=== PATIENT | female | born 1950 | race Caucasian/White ===

== ENCOUNTER 2017-06-13 12:37 | Outpatient (CLI) | payer MEDICARE, BC ==
[~2017-06-13 12:37] MED LIST: Gadobenate Dimeglumine 529 MG/1 ML (20ML VIAL) ONE
--- NOTE | 2017-06-13 16:40 | RAD ---
SACROILIAC JOINTS 3 VIEWS: Date: 06/13/17 HISTORY: Chronic back pain radiating to the hips. FINDINGS/IMPRESSION: No significant arthritic changes are seen in the SI joints. POS: [facility]
--- NOTE | 2017-06-13 18:53 | MRI ---
LUMBAR SPINE MRI WITH AND WITHOUT CONTRAST: History: Chronic back pain radiating to both hips. Comparison: None. Technique: Lumbar spine MRI is performed with and without intravenous gadolinium administration. Mul tisequential, multiplanar imaging performed. FINDINGS: There is a rightward curvature involving the lumbar spine. There is appropriate T1 marrow signal int ensity in the lumbar vertebrae. Lumbar spine vertebral body height is maintained. No significant STI R hyperintensity to suggest edema or ligamentous injury. There is no abnormal enhancement with regar ds to the vertebral bodies. No abnormal enhancement within the thecal sac including the cauda equina and conus medullaris. There are posterior laminectomy defects in the lower lumbar spine. Symmetric signal intensity of the psoas muscles. Appropriate signal intensity of the visualized beata d organs. T2 hyperintensities in the left and right renal cortex, too small to characterize. Conus medullaris terminates at the superior endplate of L2. On the post contrast images there is no abnormal enhancement within the thecal sac, including the ca uda equina and conus medullaris. T12-L1: Disc desiccation without significant loss of disc space height. No significant central canal stenosis. Moderate right and mild left neural foraminal narrowing. L1-2: Adequate disc hydration. No significant central canal stenosis. Neural foramina are mildly cynthia rowed bilaterally. L2-3: Disc desiccation with mild loss of disc space height. Mild posterior element hypertrophy. No s ignificant central canal stenosis. Moderate right and mild left foraminal narrowing. L3-4: Adequate disc hydration. No significant posterior disc abnormality. No significant central can al stenosis. Right and left neural foramen are patent. L4-5: 1 cm of anterolisthesis of L4 upon L5. There is disc desiccation with mild loss of disc space height. No high grade central canal stenosis. There is mild narrowing of the left subarticular zone. Bilateral hypertrophy is identified. Right neural foramen is patent. Moderate to severe left forami nal narrowing. There is a left hemilaminectomy defect. There is enhancing scar tissue at the operati ve site. L5-S1: Mild to moderate loss of disc space height. No significant posterior disc abnormality. No sig nificant central canal stenosis. Mild bilateral foraminal narrowing. IMPRESSION: 1. Scoliotic curvature of the lumbar spine. 2. Post-surgical changes at L4-5. Significant left foraminal narrowing. 3. Grade I anterolisthesis of L4 upon L5. POS: [facility]
== END 2017-06-13 12:38 | disposition home or self-care (01) ==
LOC: SCSMRI 12:37
PROVIDERS: ATTEND Nurse Practitioner Family
DX: M46.1 Sacroiliitis, not elsewhere classified (principal); M54.16 Radiculopathy, lumbar region; M43.16 Spondylolisthesis, lumbar region; M41.9 Scoliosis, unspecified; M54.5 Low back pain
CPT/HCPCS: 72158; 72202; A9579

== ENCOUNTER 2018-03-02 10:02 | Outpatient (CLI) | payer MEDICARE, BC ==
--- NOTE | 2018-03-02 13:51 | ULT ---
PELVIC ULTRASOUND: History: Right pelvic mass. Comparison: None. Correlation: Lumbar spine MRI from the [facility], 01-17-18. Technique: Transabdominal and endovaginal imaging of the pelvis was performed. Ovaries were interroga alma delia with grayscale, color flow, doppler imaging, and spectral waveform analysis. FINDINGS: Uterus is identified measuring 2.6 x 2.5 x 3.5 cm. Suboptimal evaluation of the endometrium. No obvio us myometrial masses. No masses or fluid in the left adnexa. The left ovary is not appreciated. There are two separate anechoic foci in the right adnexa which may represent two separate right ovari an cysts. These anechoic foci measure 2.3 x 2.5 x 2.1 cm and 3.8 x 4.1 x 3.2 cm. There is no free fluid in the pelvis. OVARIAN DOPPLER: There is vascular flow in the periphery of the anechoic foci. IMPRESSION: 1. Two separate cysts in the right adnexa, left ovarian in origin. Given patient's age, TRAFFIC CONTROL OPERATOR consultat ion is recommended. 2. These presumed right ovarian cysts likely correspond to the T2 hyperintensities noted on previous MRI. Code T POS: [facility]
== END 2018-03-02 10:03 | disposition home or self-care (01) ==
LOC: SCSULT 10:02
PROVIDERS: ATTEND Anesthesiology Pain Medicine
DX: R19.00 Intra-abdominal and pelvic swelling, mass and lump, unspecified site (principal); N83.202 Unspecified ovarian cyst, left side; N83.201 Unspecified ovarian cyst, right side; K83.8 Other specified diseases of biliary tract
CPT/HCPCS: 76856

== ENCOUNTER 2018-05-01 14:51 | Outpatient (CLI) | payer MEDICARE, BC ==
--- NOTE | 2018-05-01 15:39 | RAD ---
LUMBAR SPINE FOUR VIEWS: HISTORY: Back pain. Bilateral hip pain. COMPARISON: None. FINDINGS: There is S-shaped curvature of the lumbar spine. There appear to be five lumbar type vertebral anand s. There is diffuse bone demineralization. No fracture. In the neutral position, the lumbar spine cannot be adequately assessed due to demineralization and bowel gas. In flexion and extension positi ons, the lumbar spine cannot be assessed. IMPRESSION: Suboptimal evaluation of the lumbar spine due to diffuse bone demineralization. There is S-shaped sc oliotic curvature of the lumbar spine. POS: [facility]
--- NOTE | 2018-05-01 16:15 | CT ---
CT LUMBAR SPINE WITHOUT CONTRAST: HISTORY: Lumbar disk degeneration. Low back pain for many years. Bilateral hip pain. COMPARISON: None. TECHNIQUE: A noncontrast lumbar spine CT is performed in the axial plane. Reformatted images are submitted for interpretation. FINDINGS: The visualized lung bases are clear. The visualized solid organs are grossly unremarkable. Evaluati on is limited by lack of IV contrast. No retroperitoneal mass, lymphadenopathy, or hematoma. Symmetric attenuation of the psoas muscles. Hypodensity in the right hemipelvis, incompletely evaluated, with an attenuation coefficient of 9 Lucian nsfield units. There is scoliosis curvature of the lumbar spine. There is vacuum disk phenomenon at T12-L1, L2-L3, and L4-L5. There is partial fusion of the L5-S1 disk space. There are degenerative changes in the p osterior elements. There is no evidence of spondylolysis; however, there is 7 mm of anterolisthesis of L4 upon L5. Lumbar spine vertebral body heights are maintained, and there are no fractures. Limited evaluation of the contents of the central spinal canal and neural foramina. T10-T11: No significant central canal stenosis or neural foraminal narrowing. T12-L1: Minimal left and right paraspinal disk bulges. Minimal central canal stenosis. Mild right and moderate left neural foraminal narrowing. T12-L1: Vacuum disk phenomenon. No high grade central canal stenosis. Mild right foraminal narrowi ng. The left neural foramen is patent. L1-L2: No significant posterior disk abnormality. No significant central canal stenosis. The neura l foramina are patent. L2-L3: Vacuum disk phenomenon. No high grade central canal stenosis. No evidence of high grade christiane ral foraminal narrowing. L3-L4: Generalized disk bulge. Ligamentum flavum thickening and facet hypertrophy result in mild to moderate central canal stenosis. There is vacuum joint phenomenon in the left facet joint. There i s bilateral facet hypertrophy. The right neural foramen is patent. Minimal left foraminal narrowing . L4-L5: Vacuum disk phenomenon. Broad-based disk bulge, ligamentum flavum thickening, and facet hype rtrophy are noted. There is mild central canal stenosis. Mild to moderate right and severe left christiane ral foraminal narrowing. L5-S1: No high grade central canal stenosis. Moderate right and mild left foraminal narrowing. IMPRESSION: 1. Degenerative changes of the lumbar spine, as above. 2. Scoliosis of the lumbar spine, as above. 3. Hypodensity in the right adnexa, as detailed above. This patient had a previous MRI in February 2018. Please confirm that a ONLINE BANKING SPECIALIST consultation has been perfor med. POS: [facility]
== END 2018-05-01 14:52 | disposition home or self-care (01) ==
LOC: TBSIIMAG 14:51
PROVIDERS: ATTEND Surgery
DX: M51.16 Intervertebral disc disorders with radiculopathy, lumbar region (principal); M48.061 Spinal stenosis, lumbar region without neurogenic claudication; M43.16 Spondylolisthesis, lumbar region; M47.26 Other spondylosis with radiculopathy, lumbar region; M41.9 Scoliosis, unspecified; R93.5 Abnormal findings on diagnostic imaging of other abdominal regions, including retroperitoneum; M85.88 Other specified disorders of bone density and structure, other site
CPT/HCPCS: 72110; 72131

== ENCOUNTER 2019-02-23 10:58 | Day surgery (SDC) | payer MEDICARE, BC ==
[2019-02-21 10:27] VITALS: BMI 31.8
[2019-02-23] MEDS ORDERED: Midazolam HCl 2 mg/2 ml Vial ONE (13:22)
[2019-02-23] MEDS ORDERED: Fentanyl 100 MCG/2 ML VIAL ONE (13:23)
[2019-02-23] MEDS ORDERED: Famotidine/PF 20 mg/2ml Vial ONE (13:35)
[2019-02-23] MEDS ORDERED: Ondansetron PF 4 MG/2 ML Vial ONE ×2 (13:36→15:02)
--- NOTE | 2019-02-23 14:36 | MRI ---
MRI LUMBAR SPINE NONCONTRAST: DATE: 02/23/2019 HISTORY: 69-year-old female with chronic low back pain, right lumbar radiculopathy, spinal stenosis, and traum a, fall. COMPARISON: 01/01/2015 FINDINGS: There are 5 lumbar-type vertebrae. Vertebral body heights are maintained. There is a dextroscoliosis with apex of curvature at approximately L4. There is compensatory levoscoliosis at thoracolumbar junction. There are associated high-grade degenerative disc changes, both degenerative disc disease a nd degenerative facet disease, asymmetrically worse on the concave sides of the curvatures. T12-L1:Somewhat severe right-sided disc space narrowing. Diffuse disc bulge-osteophytic bar complex. No high-grade central stenosis and no high-grade neural foraminal stenosis. L1-2:Slight degenerative retrolisthesis of L1 on L2. Mild to moderate disc space narrowing, mostly on the right side. Mild bilateral neural foraminal stenosis. No significant central stenosis. Conus medullaris terminates at upper L2 level. L2-3:Modic type I endplate marrow changes, worse since prior MRI. Mild disc space narrowing. Diffuse disc bulge. Superimposed small central and bilateral paracentral disc extrusion with slight superior migration of disc material, similar to prior MRI. Mild bilateral degenerative facet changes. Mild to moderate bilateral neural foraminal stenosis. Mild central spinal canal stenosis. L3-4:Somewhat severe bilateral degenerative facet changes. No right neural foraminal stenosis. Mild l eft neural foraminal stenosis. Ligamentum flavum thickening. Mild distortion of thecal sac due to the posterior element degenerative hypertrophy. Overall mild-moderate central spinal canal stenosis. No interval change. L4-5: High-grade disc space narrowing, severe. Severe bilateral degenerative facet hypertrophy. Grade 1 or 2 anterolisthesis of L4 on L5. Grade 1 right lateral chronic subluxation of L4 on L5. Possible ankylosis of the bilateral facet joints. Distortion of spinal canal and thecal sac. Moderate thecal sac stenosis. Mild right neural foraminal stenosis. Severe chronic left neural foraminal stenosis with chronic compression of the exiting left L4 nerve root in the craniocaudal dimension, un changed. No overall interval change. L5-S1:Spinal canal and thecal sac are generous in caliber. Severe right-sided disc space narrowing. N o high-grade neural foraminal stenosis. Slightly hypoplastic bilateral facet joints. No major interval change. IMPRESSION: 1) lumbar spondylosis: Multilevel high-grade degenerative disc disease and multilevel high-grade face t osteoarthrosis.. 2) significant S shaped scoliosis. 3) grade 1 or 2 spondylolisthesis, plus grade 1 right lateral subluxation, at L4-5. 4) severe left neural foraminal stenosis at L4-5 with chronic compression of the exiting left L4 nerv e root. 5) apparent ankylosis of the bilateral facet joints at L4-5. 6) no significant interval change overall.
[2019-02-23] MEDS ORDERED: Dexamethasone 20 MG/5 ML VIAL ONE (15:02)
[2019-02-23] MEDS ORDERED: diphenhydrAMINE 50 MG/ML VIAL ONE (15:02)
[2019-02-23] MEDS ORDERED: Lidocaine 1% PF 5 ML VIAL ONE (15:02)
[2019-02-23] MEDS ORDERED: PROPOFOL 200 MG/20 ML VIAL ONE (15:02)
== END 2019-02-23 16:00 | disposition home or self-care (01) ==
LOC: SDC/OP 10:58
PROVIDERS: ATTEND Nurse Practitioner Family
DX: M48.061 Spinal stenosis, lumbar region without neurogenic claudication (principal); M48.05 Spinal stenosis, thoracolumbar region; M51.16 Intervertebral disc disorders with radiculopathy, lumbar region; M48.07 Spinal stenosis, lumbosacral region; M47.26 Other spondylosis with radiculopathy, lumbar region; M43.26 Fusion of spine, lumbar region; M41.9 Scoliosis, unspecified; Z88.5 Allergy status to narcotic agent; Z88.8 Allergy status to other drugs, medicaments and biological substances; Z79.899 Other long term (current) drug therapy; Z79.891 Long term (current) use of opiate analgesic
CPT/HCPCS: 72148; J2250; J2405; J3010; S0028